=== PATIENT | female | born 1975 | race Two or more races ===

== ENCOUNTER 2024-04-09 19:42 | Emergency (ER) | payer MEDICAID, SELFPAY ==
[2024-04-09 19:42] VITALS: BMI 27.1
[2024-04-09 19:55] VITALS: BP 185/117; PULSE 75; RESP 18; TEMP 36.9; O2SAT 99
--- NOTE | 2024-04-09 20:00 | XR_ITS ---
Examination: CT brain head without contrast. 2-D sagittal coronal reconstructions Date and time of exam:April 09, 2024 2054 hrs. Indications: Onset headaches dizziness beginning 5 days ago CTDI: vol (mGy):48.7 DLP: (mGycm):979 Technique: Multiple CT axial sections of the brain have been obtained, 5 mm slice thickness. Contrast has not been administered. 2-D sagittal, coronal reconstructions have been obtained Low dose protocols were performed. One or more of the following dose reduction techniques were used; automated exposure control, adjustment of the mA and/or KV according to patient size, use of iterative reconstruction technique. Findings: No significant ventricular enlargement. Intra-axial or extra-axial hemorrhage density is not seen. No mass effect or midline shift Basal cisterns are not remarkable. Fourth ventricle is midline. Cranial vault intact. Impression: Negative for acute hemorrhage, mass effect or midline shift If symptoms persist, consider brain MRI follow-up
--- NOTE | 2024-04-09 20:00 | PD.EDRME ---
Rapid Medical Screening Exam RME Arrival date/time: 04/09/24 19:42 49-year-old female past medical history of hypertension presents emergency department complaining of dizziness and headache and elevated blood pressure for 5 days. Chief Complaint: Dizziness Time Seen by Provider: 04/09/24 19:54 Vital signs: Vital Signs Temperature 98.4 F 04/09/24 19:55 Pulse Rate 75 04/09/24 19:55 Respiratory Rate 18 04/09/24 19:55 Blood Pressure 185/117 H 04/09/24 19:55 Pulse Oximetry (%) 99 04/09/24 19:55 Oxygen Delivery Method Room Air 04/09/24 19:55 Vital signs reviewed by provider: Yes
[2024-04-09 20:50] VITALS: BP 185/117; PULSE 75
[2024-04-09] MEDS: hydrALAZINE HCL 25 MG TABLET PO (20:50)
[2024-04-09] MEDS: ACETAMINOPHEN 500 MG TABLET 1000 MG PO (20:50)
[2024-04-09 21:47] VITALS: BP 156/92; PULSE 74; RESP 18; TEMP 36.8; O2SAT 98
--- NOTE | 2024-04-09 21:55 | EDNOTE_ITS ---
ED Headache RME/HPI General Chief Complaint: Dizziness Stated Complaint: H/A, DIZZINESS; HIGH BP. Time Seen by Provider: 04/09/24 19:54 Source: patient Arrival date/time: 04/09/24 19:42 49-year-old female past medical history of hypertension presents emergency department complaining of dizziness and headache and elevated blood pressure for 5 days. Mode of arrival: ambulatory Limitations: no limitations RME / HPI RME / HPI Narrative: 04/09/24 19:42 49-year-old female past medical history of hypertension presents emergency department complaining of dizziness and headache and elevated blood pressure for 5 days. Related Data Previous Rx's ?Medication ?Instructions ?Recorded dicyclomine 20 mg tablet 20 mg PO QID PRN abdominal pain 01/24/23 #30 tabs acetaminophen 500 mg capsule 500 mg PO Q6H PRN pain #30 caps 04/09/24 Allergies Allergy/AdvReac Type Severity Reaction Status Date / Time iodine Allergy Verified 04/09/24 19:46 Review of Systems Review of Systems Systems Reviewed: All systems reviewed, normal except as documented Constitutional Constitutional: Reports system reviewed and no additional complaints, except as documented, Denies body ache(s), Denies chills, Denies fever(s) and Reports headache(s) Eyes Eyes: Reports system reviewed and no additional complaints, except as documented and Denies change in vision ENT Ears, Nose, Mouth, and Throat: Reports system reviewed and no additional complaints, except as documented, Denies disequilibrium, Reports dizziness, Reports headache(s), Denies sore throat and Denies vertigo Cardiovascular Cardiovascular: Reports system reviewed and no additional complaints, except as documented, Denies chest pain and Denies dyspnea Respiratory Respiratory: Reports system reviewed and no additional complaints, except as documented, Denies chest congestion, Denies cough and Denies dyspnea Gastrointestinal Gastrointestinal: Reports system reviewed and no additional complaints, except as documented, Denies abdominal pain, Denies nausea and Denies vomiting Musculoskeletal Musculoskeletal: Reports system reviewed and no additional complaints, except as documented, Denies abnormal gait and Denies arthralgias Integumentary/Breasts Skin/Breast: Reports system reviewed and no additional complaints, except as documented, Denies erythema, Denies rash and Denies wounds Neurologic Neurologic: Reports system reviewed and no additional complaints, except as documented, Denies abnormal gait, Denies disequilibrium, Reports dizziness, Reports headache(s) and Denies vertigo Past Medical History Social History SMOKING STATUS: Never smoker ED Exam General Limitations: Present no limitations General appearance: Present alert and in no apparent distress Head Head exam: Present atraumatic Eye Eye exam: Present normal appearance, PERRL and EOMI ENT ENT exam: Present normal exam, normal oropharynx and mucous membranes moist Neck Neck exam: Present normal inspection, full ROM and trachea midline Chest Chest inspection: Present normal inspection and symmetric chest wall rise Respiratory Respiratory exam: Present normal lung sounds bilaterally Cardiovascular Cardiovascular exam: Present regular rate, normal rhythm and normal heart sounds Abdominal Exam Abdominal exam: Present soft and normal bowel sounds Extremities Exam Extremities exam: Present normal inspection and full ROM Back Exam Back exam: Present normal inspection and full ROM Neurological Exam Neurological exam: Present alert, oriented X3 and CN II-XII intact Psychiatric Psychiatric exam: Present normal affect and normal mood Skin Skin exam: Present warm, dry, intact and normal color Course Quality Measures none Orders Category Date Time Status Bedside Influenza A&B Antigen Test NOW Care 04/09/24 20:[address] head/brain wo con Stat Exams 04/09/24 20:00 Completed Acetaminophen Tab [Tylenol ES Tab] Med 04/09/24 20:23 Discontinued 1,000 mg PO X1 ONE hydrALAZINE HCL [Apresoline] Med 04/09/24 20:00 Discontinued 25 mg PO X1 ONE Vital Signs Vital signs: Vital Signs Temperature 98.4 F 04/09/24 19:55 Pulse Rate 75 04/09/24 19:55 Respiratory Rate 18 04/09/24 19:55 Blood Pressure 185/117 H 04/09/24 19:55 Pulse Oximetry (%) 99 04/09/24 19:55 Oxygen Delivery Method Room Air 04/09/24 19:55 99% room air within normal limits Headache MDM Narrative MDM Narrative:: 49-year-old female past medical history of hypertension presents emergency department complaining of dizziness and headache and elevated blood pressure for 5 days. Patient appears nontoxic and is hemodynamically stable. Patient GCS of 15 with steady gait. Cranial nerve exam within normal limits. CT head unremarkable. Patient's elevated blood pressure treated with p.o. hydralazine with significant improvement. Patient instructed to keep diary of blood pressure reading and have close follow -up with primary care provider for possible change or increase in blood pressure medication. Patient data External records reviewed:: [facility] previous records Clinical information provided by:: patient Social determinants that could affect healthcare access:: none Patient has the following chronic illnesses:: See chart How is presenting disease/condition affected by chronic disease/condition?: no chronic disease Evaluation data The following diagnostics were reviewed and interpreted by me:: radiology exam(s) Lab and/or radiology exams considered but not ordered:: Ordered Interpretation Summary: Interpreted by me Medications / Prescriptions Medications or Prescriptions considered but not ordered:: Ordered Medication administrations:: Medication Administration History Discontinued Medications Acetaminophen (Acetaminophen 500 Mg Tablet) 1,000 mg PO X1 ONE Stop: 04/09/24 20:24 Last Admin: 04/09/24 20:50 Dose: 1,000 mg Documented By: Hydralazine HCl (Hydralazine Hcl 25 Mg Tablet) 25 mg PO X1 ONE Stop: 04/09/24 20:01 Last Admin: 04/09/24 20:50 Dose: 25 mg Documented By: Given Consultations Consultation(s) initiated? (list below): No Diagnosis Differential diagnosis headache: migraine, tension headache, subarachnoid hemorrhage, headache, meningitis, sinusitis and postconcussion syndrome Most likely diagnosis given after review of the tests above:: Headache Admission Indicated Admission indicated?: not indicated Admission Request Was there a request for admission?: No Disposition Plan Disposition Plan: Discharge Discharge Attestation Discharge Attestation: The patient and all family members were given an opportunity to ask questions and understood the discharge instructions. Discharge instructions specifically effects, indications for sooner follow up or return to the emergency department, and the expected course of current diagnosis. Patient condition: Stable Discharge Plan Plan Patient Disposition: HOME (Self Care) Disposition Comment: Stable Prescriptions/Referrals Prescriptions/Med Rec: New acetaminophen 500 mg capsule 500 mg PO Q6H PRN (Reason: pain) Qty: 30 0RF No Action dicyclomine 20 mg tablet 20 mg PO QID PRN (Reason: abdominal pain) Qty: 30 0RF Referrals: ABELARDO KNIGHT [Primary Care Provider] - In 1 week Problem List Clinical Impression: Headache Patient/Caregiver Discharge Instructions Discharge Activity: activity as tolerated Education Materials: Self-Care for Headaches Additional Instructions: Keep log of blood pressure readings daily. Take Tylenol or ibuprofen as needed for pain. Close follow-up with primary care provider in 24 to 48 hours. Return to emergency department for any worsening symptoms or as needed. Print Language: [place] Stand Alone Forms: [employer] Award Info., Patient Portal Info Letter PA/BEAM DEPARTMENT SUPERVISOR Supervising Physician PA/BEAM DEPARTMENT SUPERVISOR Supervising Physician: Dr. Caldera
== END 2024-04-09 22:25 | disposition home or self-care (01) ==
PROVIDERS: Emergency Provider Emergency Medicine
DX: R51.9 Headache, unspecified (principal); R42 Dizziness and giddiness; I10 Essential (primary) hypertension
CPT/HCPCS: 70450; 87400; 99284; A9270

== ENCOUNTER → 2024-04-09 | Outpatient (CLI) | payer MEDICAID, SELFPAY ==
--- NOTE | 2024-04-09 12:46 | XR_ITS ---
Examination: PA lateral chest 2 views TECHNIQUE: Upright PA lateral chest 2 views Exam date and time: April 09, 2024 1312 hours INDICATIONS: Dyspnea on exertion with chest pain beginning 3 days ago. FINDINGS: Mild enlargement cardiac contour No pneumonia or pulmonary edema Intact osseous structures IMPRESSION: Mild enlargement cardiac contour
== END | disposition home or self-care (01) ==
LOC: CDIM 12:12
PROVIDERS: PCP Family Medicine; Referring Provider Nurse Practitioner Family; Visit Provider Nurse Practitioner Family
DX: I51.7 Cardiomegaly (principal)
CPT/HCPCS: 71046

== ENCOUNTER 2024-04-20 11:17 | Emergency (ER) | payer MEDICAID, SELFPAY ==
[2024-04-20 11:19] VITALS: BMI 29.0
[2024-04-20 12:43] VITALS: BP 163/102; PULSE 71; RESP 18; TEMP 36.2; O2SAT 98
== END 2024-04-20 14:42 | disposition left against medical advice (07) ==
LOC: SERX 13:09
PROVIDERS: Emergency Provider Emergency Medicine
DX: Z53.21 Procedure and treatment not carried out due to patient leaving prior to being seen by health care provider (principal)
CPT/HCPCS: 99281

== ENCOUNTER → 2024-05-03 | Outpatient (CLI) | payer MEDICAID, SELFPAY ==
--- NOTE | 2024-05-03 15:00 | XR_ITS ---
Examination: Screening digital mammography, bilateral Computer aided detection 3-D breast Tomosynthesis, bilateral Date and time of exam: May 03, 2024 1501 hours Indication: Screening Technique: Nonmagnified MLO, CC views of the breasts to been obtained, reconstructed from 3-D Tomosynthesis images. R2 computer aided detection program utilized for evaluation of suspicious masses and/or abnormal calcifications. 3-D Tomosynthesis images obtained. Findings: Scattered areas of fibroglandular density. Benign calcifications. No suspicious masses Impression: BI-RADS category II: Benign Findings. Recommend 1 year follow-up mammogram.
== END | disposition home or self-care (01) ==
LOC: CDIM 14:37
PROVIDERS: PCP Nurse Practitioner Family; Referring Provider Nurse Practitioner Family; Visit Provider Nurse Practitioner Family
DX: Z12.31 Encounter for screening mammogram for malignant neoplasm of breast (principal); R92.323 Mammographic fibroglandular density, bilateral breasts; R92.1 Mammographic calcification found on diagnostic imaging of breast
CPT/HCPCS: 77063; 77067

== ENCOUNTER 2024-07-19 12:30 | Day surgery (SDC) | payer MEDICAID, SELFPAY ==
[2024-07-13 13:20] LABS: HCG Qualitative,Urine Negative
[2024-07-17 12:51] VITALS: BMI 27.6
[2024-07-19] VITALS (10 sets, daily range): BP systolic 90–145; BP diastolic 57–88; PULSE 52–76; RESP 12–254; TEMP 36.2–36.6; O2SAT 95–100; BMI 27.8
[2024-07-19 13:00] LABS: HCG Qualitative,Urine Negative
[2024-07-19] MEDS: RINGERS LACTATED 1000 ML 1,000 ML 100 ML IV (14:50)
[2024-07-19] MEDS: fentaNYL CIT INJ 50 mCg/ML AMP 2ML (ASD USE ONLY) IV (14:57)
[2024-07-19] MEDS: MIDAZOLAM INJ 1 MG/ML VIAL 2 ML (ASD USE ONLY) 2 MG IV (14:59)
== END 2024-07-19 15:55 | disposition home or self-care (01) ==
PROVIDERS: PCP Family Medicine; Referring Provider Surgery; Visit Provider Surgery
PROC: 0DBE8ZX Excision of Large Intestine, Via Natural or Artificial Opening Endoscopic, Diagnostic (ICD-10-PCS; CPT 45380; principal; 2024-07-19 14:30)
DX: Z12.11 Encounter for screening for malignant neoplasm of colon (principal)
CPT/HCPCS: 45385; 81025; A4217; J2250; J3010; J7120